=== PATIENT | female | born 1955 | race Caucasian/White ===

== ENCOUNTER → 2017-03-30 | Outpatient (CLI) | payer BC ==
[~2017-03-30] MED LIST: ADIPEX-P37.5 MG PO; AFLEXA340 MG PO; ASPIRIN 32325 MG/TAB PO; ATIVAN 0.50.5 MG/TAB PO; BENADRYL25 M2 PO; DULCOLAX S10 MG/SUPP RC; FERROUS SU325 MG/TAB PO; FLEXERIL 1010 MG/TAB PO; FOLIC ACID 40400 MCG PO; GINKO BILOBA60 MG PO; LEXAPRO 10MG10 MG PO; MILK OF MA400 MG/5 M; NO HOME MEDICATIONS; NORCO 325 MG-51 TAB PO; NORCO 325 MG-7.1 TAB PO; ROXICODONE 55 MG/TAB PO; SENOKOT S 50 MG1 TAB PO; TYLENOL 500MG500 MG PO; VITAMIN C500 MG PO; XARELTO10 MG PO
== END ==
LOC: COL.VAS 07:44
DX: R20.0 Anesthesia of skin (principal); M79.89 Other specified soft tissue disorders

== ENCOUNTER → 2017-07-07 | Outpatient (CLI) | payer BC | LOC: MC.RAD 16:29 | DX: Z12.31 Encounter for screening mammogram for malignant neoplasm of breast (principal) ==

== ENCOUNTER 2018-11-15 18:24 | Emergency (ER) | payer BC ==
[~2018-11-15] VITALS: Ht 170.2 cm; Wt 104.5 kg
[2018-11-15 18:53] LABS: BASO % 0.3 % (0.0-2.0); EOS # 0.2 (0.0-0.7); EOS % 1.4 % (0-4.0); GRAN # 9.1 (1.4-6.5); GRAN % 71.4 % (42.2-75.2); HEMATOCRIT 43.2 % (37.0-47.0); HEMOGLOBIN 15.4 g/dl (12.5-16.0); LYMPH # 2.5 (1.2-3.4); LYMPH % 19.9 % (20.0-51.0); MEAN CELL VOLUME 90 fl (80.0-100.0); MEAN CORPUSCULAR HEMOGLOBIN 32 pg (27.0-31.0); MEAN CORPUSCULAR HGB CONC 36 g/dl (33.0-37.0); MEAN PLATELET VOLUME 9.6 fl (7.4-10.4); MONO # 0.9 (0.1-0.6); MONO % 6.7 % (1.7-9.3); PLATELET COUNT 288 K/mm3 (130-400); RED BLOOD COUNT 4.78 M/mm3 (4.10-5.30); REDCELL DISTRIBUTION WIDTH-CV 12.1 % (11.5-14.5)
[2018-11-15 19:03] LABS: ALANINE AMINOTRANSFERASE 26 U/L (9-52); ALBUMIN 4.2 gm/dL (3.5-5.0); ALKALINE PHOSPHATASE 121 U/L (50-136); ANION GAP 7 mmol/L (7-16); AST,SGOT 22 U/L (15-37); BILIRUBIN,TOTAL 0.4 mg/dL (0.0-1.0); BLOOD UREA NITROGEN 14 mg/dL (7-17); CALCIUM 9.5 mg/dL (8.4-10.2); CARBON DIOXIDE 25 mmol/L (22-30); CHLORIDE 107 mmol/L (98-107); CREATININE, serum 0.71 mg/dL (0.52-1.25); GLUCOSE 100 mg/dL (74-106); POTASSIUM 4.1 mmol/L (3.4-5.0); PROTHROMBIN TIME 11.2 SECONDS (9.7-12.8); SODIUM 139 mmol/L (137-145); TOTAL PROTEIN 7.5 gm/dL (6.4-8.2)
[2018-11-15 19:14] LABS: TROPONIN-I < 0.012 ng/mL (0.000-0.034)
[2018-11-15 23:00] VITALS: BP 119/74; PULSE 85
== END 2018-11-15 23:00 | disposition home or self-care (01) ==
LOC: COL.ER 18:24
PROVIDERS: Emergency Medicine
DX: R07.89 Other chest pain (principal); F17.210 Nicotine dependence, cigarettes, uncomplicated; Z90.49 Acquired absence of other specified parts of digestive tract; Z98.51 Tubal ligation status
CPT/HCPCS: J7030; Q9967

== ENCOUNTER → 2019-08-01 | Outpatient (CLI) | payer BC | LOC: MC.RAD 07:13 | DX: Z12.31 Encounter for screening mammogram for malignant neoplasm of breast (principal) ==

== ENCOUNTER 2019-11-04 06:57 | Day surgery (SDC) | payer BC ==
[~2019-11-04] VITALS: Ht 170.2 cm; Wt 96.6 kg
[2019-11-04 07:33] VITALS: BP 121/88; PULSE 102; TEMP 98.6
[2019-11-04] MEDS ORDERED: ADDERALL30 MG PO (07:41)
--- NOTE | 2019-11-04 07:42 | NUR ---
TO RM AT 0710- CALL LIGHTIN REACH NO ONE WITH PATIENT AND WILL CALL FOR RIDE HOME AFTER PROCEDURE.
[2019-11-04 08:35] VITALS: BP 119/64; PULSE 80; TEMP 97.8
--- NOTE | 2019-11-04 08:35 | NUR ---
Pt returns from endoscopy procedure via cart and ROWAN Garcia, assist. Pt ambulates from cart to recliner with RN assist. Pt alert and oriented. Call light within reach. Monitors on and alarms set. Report received from ROWAN Garcia. Friend being called now. Pt denies pain or nausea. Pt requests muffin and water.
[2019-11-04 08:45] VITALS: BP 126/63; PULSE 76
--- NOTE | 2019-11-04 08:50 | NUR ---
Pt taking food and drink well. No complications stated.
--- NOTE | 2019-11-04 08:55 | NUR ---
Pt ambulates to bathroom with RN assist.
--- NOTE | 2019-11-04 09:05 | NUR ---
Discharge instructions given to patient. All questions answered to her satisfaction. Handed to her are discharge instructions, diagnosis information, and a discharge med sheet.
--- NOTE | 2019-11-04 09:07 | NUR ---
Pt transferred out of hospital via wheelchair and ROWAN Hernandez, to waiting private vehicle driven by friend.
== END 2019-11-04 09:09 | disposition home or self-care (01) ==
LOC: SDCO 06:57
DX: K62.1 Rectal polyp (principal); K57.30 Diverticulosis of large intestine without perforation or abscess without bleeding; F17.210 Nicotine dependence, cigarettes, uncomplicated; Z88.2 Allergy status to sulfonamides; Z80.0 Family history of malignant neoplasm of digestive organs; Z96.643 Presence of artificial hip joint, bilateral; Z90.49 Acquired absence of other specified parts of digestive tract
CPT/HCPCS: J2704; J7120

== ENCOUNTER → 2021-04-01 | Outpatient (CLI) | payer BC ==
[~2021-04-01] MED LIST changes: +ADDERALL30 MG PO
== END ==
LOC: COL.RAD 09:45
DX: M25.551 Pain in right hip (principal)
CPT/HCPCS: J3301; Q9967

== ENCOUNTER → 2021-12-19 | Outpatient (CLI) | payer BC | LOC: MC.RAD 15:53 | DX: Z12.31 Encounter for screening mammogram for malignant neoplasm of breast (principal) ==

== ENCOUNTER 2022-03-15 17:06 | Emergency (ER) | payer BC ==
[~2022-03-15] VITALS: Ht 170.2 cm; Wt 100.0 kg
[2022-03-15 17:09] VITALS: TEMP 98.1
[2022-03-15] MEDS ORDERED: FLEXERIL 1010 MG/TAB PO (18:13)
[2022-03-15 19:00] VITALS: BP 148/74; PULSE 81
[2022-03-17] MEDS ORDERED: FLEXERIL 1010 MG/TAB PO (12:12)
== END 2022-03-15 19:00 | disposition home or self-care (01) ==
LOC: COL.ER 17:06
DX: M54.12 Radiculopathy, cervical region (principal); H60.91 Unspecified otitis externa, right ear; Z87.891 Personal history of nicotine dependence
CPT/HCPCS: J1885

== ENCOUNTER → 2022-05-07 | Outpatient (CLI) | payer BC | LOC: COL.RAD 11:30 | DX: N20.0 Calculus of kidney (principal); K57.30 Diverticulosis of large intestine without perforation or abscess without bleeding ==

== ENCOUNTER 2022-09-12 05:59 | Day surgery (SDC) | payer MEDICARE, BC ==
[~2022-09-12] VITALS: Ht 170.2 cm; Wt 94.4 kg
[2022-09-12 06:31] VITALS: BP 138/82; PULSE 90; TEMP 97.6
[2022-09-12 07:35] VITALS: BP 125/72; PULSE 78
--- NOTE | 2022-09-12 07:35 | NUR ---
PATIENT RETURNS TO BAY 1 PER CART AND TRANSFERS FROM CART TO RECLINER WITH TWO PERSON ASSIST. IV FLUIDS INFUSING. CALL LIGHT IN REACH. GIVEN WATER AND SPRITE TO DRINK. DENIES ABDOMINAL PAIN OR NAUSEA. AWAKE AND ALERT.
--- NOTE | 2022-09-12 07:40 | NUR ---
DR. KABA IN THE ROOM AND TALKS WITH PATIENT. ALL QUESTIONS ANSWERED.
[2022-09-12 07:50] VITALS: BP 136/71; PULSE 78
--- NOTE | 2022-09-12 07:50 | NUR ---
OFFERED SNACK AND STATES WILL EAT AT HOME.
[2022-09-12 08:00] VITALS: BP 130/74; PULSE 74
--- NOTE | 2022-09-12 08:03 | NUR ---
DISCHARGE INSTRUCTIONS GIVEN AND PATIENT VOICES UNDERSTANDING OF THESE. PATIENT DRESSED.
--- NOTE | 2022-09-12 08:07 | NUR ---
PATIENT DISCHARGED TO HOME DRIVEN BY FRIEND AND TAKEN TO VEHICLE PER WHEELCHAIR AND ASSISTED INTO CAR WITH INSTRUCTIONS IN HAND.
== END 2022-09-12 08:07 | disposition home or self-care (01) ==
LOC: SDCO 05:59
DX: K57.30 Diverticulosis of large intestine without perforation or abscess without bleeding (principal)
CPT/HCPCS: J2704; J7120

== ENCOUNTER 2023-02-02 15:53 | Outpatient (RCR) | payer OTHER, MEDICARE, BC | END 2023-02-06 | disposition home or self-care (01) | LOC: MKS.ESL.PT | DX: M54.2 Cervicalgia (principal); M54.50 Low back pain, unspecified ==

== ENCOUNTER 2023-03-02 16:15 | Outpatient (RCR) | payer OTHER, MEDICARE, BC | END 2023-03-08 | disposition home or self-care (01) | LOC: MKS.ESL.PT | DX: M54.2 Cervicalgia (principal); M54.9 Dorsalgia, unspecified | CPT/HCPCS: G0283-GP ==

== ENCOUNTER 2023-06-22 10:48 | Outpatient (RCR) | payer MEDICARE, BC | END 2023-07-09 | disposition home or self-care (01) | LOC: MKS.ESL.PT | DX: M54.2 Cervicalgia (principal); M54.9 Dorsalgia, unspecified; M25.551 Pain in right hip ==

== ENCOUNTER 2024-05-27 10:11 | Day surgery (SDC) | payer MEDICARE, BC ==
[~2024-05-27] VITALS: Ht 171.4 cm; Wt 78.5 kg
[~2024-05-27 10:11] MED LIST changes: +LR 1,000 ML IV SCH; +Ondansetron 4 MG/2 ML VIAL IV PRN
[2024-05-27] MEDS ORDERED: FOSAMAX 70MG TA70 MG PO (10:58)
[2024-05-27] MEDS ORDERED: PREDNISONE1 MG PO (10:59)
[2024-05-27] MEDS ORDERED: PREDNISONE 5MG5 MG PO (10:59)
[2024-05-27] MEDS ORDERED: ADDERALL10 MG PO (11:00)
[2024-05-27] MEDS ORDERED: COLESTID 1GM1 G PO (11:01)
[2024-05-27] MEDS ORDERED: MIRALAX119G PO (11:02)
[2024-05-27] MEDS ORDERED: PROBIOTIC DIGE1 EACH PO (11:02)
[2024-05-27] MEDS ORDERED: VITAMIN C500 MG PO (11:03)
[2024-05-27] MEDS ORDERED: VITAMIND3 5000 PO (11:03)
[2024-05-27] MEDS ORDERED: B-12 500 MCG PO (11:04)
[2024-05-27] MEDS ORDERED: BREO IH (11:04)
[2024-05-27 11:05] VITALS: BP 113/77; PULSE 96; TEMP 97.9
[2024-05-27 12:40] VITALS: BP 121/68; PULSE 95; TEMP 97.8
[2024-05-27 13:20] VITALS: BP 134/83; PULSE 100
[2024-05-27 13:35] VITALS: BP 136/78; PULSE 89
[2024-05-27 13:57] LABS: BASO % 0.5 % (0.0-2.0); EOS % 0.4 % (0.0-4.0); GRAN # 6.3 K/mm3 (1.4-6.5); GRAN % 80.4 % (42.2-75.2); HEMOGLOBIN 12.3 g/dl (12.5-16.0); LYMPH # 0.8 K/mm3 (1.2-3.4); LYMPH % 10.1 % (20.0-51.0); MEAN CELL VOLUME 92 fl (80.0-100.0); MEAN CORPUSCULAR HEMOGLOBIN 31 pg (27-31); MEAN CORPUSCULAR HGB CONC 34 g/dl (33.0-37.0); MEAN PLATELET VOLUME 8.7 fl (7.4-10.4); MONO # 0.7 K/mm3 (0.1-0.6); MONO % 8.3 % (1.7-9.3); PLATELET COUNT 401 K/mm3 (130-400); RED BLOOD COUNT 3.99 M/mm3 (4.10-5.30); REDCELL DISTRIBUTION WIDTH-CV 12.6 % (11.5-14.5)
[2024-05-27 14:00] LABS: HEMATOCRIT 36.6 % (37.0-47.0)
--- NOTE | 2024-05-27 14:24 | NUR ---
1330 - STAFF REPORTED TO THIS NURSE THAT PATIENT WAS EXPECTING THAT HER 15 YEAR OLD GRANDDAUGHTER WHO HAD A LEARNING PERMIT WOULD BE THE ONE TO DRIVE HER HOME. I HAD A DISCUSSION WITH DR. KABA AND HE STATED THE PATIENT SHOULD NOT BE SENT HOME WITH THE 15 YEAR OLD. I DISCUSSED THIS WITH THE PATIENT WHO WAS DISGRUNTLED STATING THAT SHE WOULD BE THE ONE WHO DEEMED IF SOMEONE WAS RESPONSIBLE. I ASKED IF SHE HAD THE ABILITY TO HAVE ANOTHER PERSON COME TO GET HER AND SHE SAID IT WOULD AT 1630 WHEN THEY WOULD BE AVAILABLE. I OFFERED HER TO STAY IN HER ROOM DURING THAT TIME AND THAT WE WOULD ACCOMMODATE HER TO STAY. IT WAS REPORTED SHORTLY AFTER THIS CONVERSATION THAT SHE HAD ANOTHER 18 YEAR OLD GRANDDAUGHTER WHO WOULD BE COMING TO GET THE PATIENT. CALLS WERE MADE TO PROJECT COORDINATOR AND THEN TO UPHOLSTERY TRIMMER ABOUT THE SITUATION. THEY SAID THEY WOULD ESCALATE THE SITUATION AND LET ME KNOW BACK ON DIRECTION MOVING FORWARD. DR. KABA AWARE OF THE SITUATION AND WAS AGREEABLE TO PATIENT DISCHARGING IF RESPONSIBLE RETAIL ZONE SPECIALIST WAS OBTAINED.
--- NOTE | 2024-05-27 18:13 | NUR ---
1240: PT TO BAY 9 FROM ENDO SUITE. AMBULATED FROM CART TO RECLINER X2 ASSIST. REPORT RECEIVED FROM ENDO NURSE. PT ALERT AND ORIENTED. DENIES PAIN OR NAUSEA.C/O DIZZINES AND LIGHT HEADEDNESS. PT STATED THIS HAS BEEN PRESENT FOR "AWHILE" REQUESTING MUFFIN AND WATER. WHEN ASKED THE AGE OF HER RIDE. PT STATED SHE WAS 17. THIS NURSE INFORMED HER OF THE HOSPITAL POLICY THAT HER DIRECTOR OF GRADUATE MEDICAL EDUCATION HAS TO BE 18 YEARS OF AGE. PT BECAME DIGRUNTLED. NURSE EMERGENCY MEDICINE SPECIALIST, KARLA, NOTIFIED. 1250: PT AMBULATED WITH STAND-BY ASSIST TO BATHROOM. 1300: PT REMAINS IN BR AT THIS TIME. UNABLE TO ASSESS VS. 1315: PT REMAIN IN BR AT THIS TIME. PT GIVEN AN CLEAN GOWN AND WIPES. UNABLE TO ASSESS VS AT THIS TIME. 1320: AMBULATED BACK TO ROOM. KARLA IN TO SPEAK WITH PT. DENIES PAIN OR NAUSEA. 1335: CBC ORDERED AT THIS TIME. 1340: DR. KABA IN TO SPEAK WITH PT AT THIS TIME. NOTIFIED OF PT C/O DIZZINESS AND LIGHT HEADEDNESS. 1342: LAB IN TO DRAW CBC AT THIS TIME. 1345: PT NICK HOLLOWAY, HAS ARRIVED. NICK STATED SHE WAS 20 YEARS OLD. 1406: DR KABA NOTIFIED OF LABS AND ELDER GRANDDAUGHTER. STATED OK TO DC. UPON ENTERING THE PT ROOM, PT REQUESTING TO SPEAK WITH DR. KABA STATING SHE "DID NOT REMEMBER THE PREVIOUS CONVERSATION" DR. KABA NOTIFIED. 1415: PT AMBULATED TO BR INDEPENDENTLY. 1424: DISCHARGE EDUCATION DONE AT THIS TIME. PT STATED UNDERSTANDING OF DC INSTRUCTIONS. DC PAPERWORK GIVEN TO PT. IV DC'D AT THIS TIME. PT DENIES ASSISTANCE DRESSING. 1430: DR. KABA BACK IN TO SPEAK WITH PT AT THIS TIME. 1440: PT BACK TO PRE-OP BASELINE. PT AMBULATED INDEPENDENTLY FROM RECLINER TO WHEELCHAIR. PT OFF UNIT AT THIS TIME. PT DC TO HOME WITH NICK PER PERSONAL VEHICLE.
== END 2024-05-27 14:40 | disposition home or self-care (01) ==
LOC: SDCO 10:11
PROVIDERS: Internal Medicine Gastroenterology
DX: K51.40 Inflammatory polyps of colon without complications (principal); K62.1 Rectal polyp; K64.1 Second degree hemorrhoids; K64.4 Residual hemorrhoidal skin tags; K56.699 Other intestinal obstruction unspecified as to partial versus complete obstruction; K52.9 Noninfective gastroenteritis and colitis, unspecified; K57.30 Diverticulosis of large intestine without perforation or abscess without bleeding; F17.210 Nicotine dependence, cigarettes, uncomplicated
CPT/HCPCS: J7120